=== PATIENT | female | born 1990 | race Caucasian/White ===

== ENCOUNTER 2016-05-19 07:35 | Emergency (ER) | payer OTHER ==
[~2016-05-19] VITALS: Ht 162.6 cm; Wt 78.2 kg
[~2016-05-19 07:35] MED LIST: ALBU8.5H4 IH; Acetaminophen PO; DOCU-41 PO; FLUT16SP2 NS; HYDR25SU31 RC; HYDR30CR76 RC; LORA10CA PO; PROM25SU46 RC
[2016-05-19 07:43] VITALS: BP 109/59; PULSE 83; RESP 26; O2SAT 100
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
[2016-05-19 08:17] LABS: BASOPHILS % (AUTO) 0.3 % (0-3); MONOCYTES % (AUTO) 7.7 % (4-12); Mean Corpuscular Volume 91.1 fL (81-100); NEUTROPHILS % (AUTO) 47.9 % (40-74); Platelet Count 268 bil/L (150-400)
[2016-05-19 08:39] LABS: TROPONIN T 0.01 ug/L (0.0-0.011)
[2016-05-19 10:30] VITALS: BP 101/60; PULSE 91; RESP 21; O2SAT 96
== END 2016-05-19 10:31 | disposition home or self-care (01) ==
LOC: EDUNIT# 07:35 → EDBD 07:35 → SED 07:35
DX: T75.4XXA Electrocution, initial encounter (principal); W86.0XXA Exposure to domestic wiring and appliances, initial encounter; Y93.89 Activity, other specified; Y92.89 Other specified places as the place of occurrence of the external cause; Y99.0 Civilian activity done for income or pay; K21.9 Gastro-esophageal reflux disease without esophagitis; J45.909 Unspecified asthma, uncomplicated; Z79.899 Other long term (current) drug therapy; Z88.0 Allergy status to penicillin; Z88.2 Allergy status to sulfonamides; Z88.1 Allergy status to other antibiotic agents; Z88.6 Allergy status to analgesic agent; Z88.8 Allergy status to other drugs, medicaments and biological substances

== ENCOUNTER 2016-12-21 08:41 | Emergency (ER) | payer OTHER ==
[~2016-12-21] VITALS: Ht 162.6 cm; Wt 86.4 kg
[2016-12-21 08:45] VITALS: BP 126/87; PULSE 85; RESP 16; O2SAT 98
[2016-12-21] MEDS ORDERED: ALBU18HF INH (08:48)
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
[2016-12-21] MEDS ORDERED: Iohexol 300 mg/mL 30 mL Inj PO ONE (09:10)
[2016-12-21 09:18] LABS: BASOPHILS % (AUTO) 0.3 % (0-3); EOSINOPHILS % (AUTO) 1.6 % (0-5); MONOCYTES % (AUTO) 6.8 % (4-12); Mean Corpuscular Volume 94.2 fL (81-100); NEUTROPHILS % (AUTO) 44.8 % (40-74); Platelet Count 247 bil/L (150-400)
[2016-12-21 09:53] LABS: Magnesium 1.9 mg/dL (1.6-2.6)
--- NOTE | 2016-12-21 10:57 | DRSVH ---
PROCEDURE: CT ABDOMEN AND PELVIS WITH CONTRAST ([id number]) INDICATIONS: abdominal pain TECHNIQUE: After the administration of intravenous contrast, 5 mm thick sections acquired from the diaphragm to the symphysis. 5 mm coronal and sagittal reformats were acquired. For radiation dose reduction, the following was used: automated exposure control, adjustment of mA and/or kV according to patient siz e. COMPARISON: [facility], CR, XR ABD ACUTE SERIES 3VW, 04/12/2016, 14:57. [facility] , CT, ABD/PELVIS W/CON (PNL), 08/24/2008, 17:39. FINDINGS: Image quality: Excellent. ABDOMEN: Lung bases: Lung bases are clear. Heart size is normal. Solid organs: Liver and spleen are normal in size and enhancement. Gallbladder is surgically absent . Biliary system is non dilated. Pancreas enhances normally. No adrenal nodules. Kidneys demonstr ate normal size and enhancement, without hydronephrosis. Peritoneum and bowel: Appendix is normal. Bowel loops demonstrate normal wall thickness and caliber. No free fluid or air. Nodes and vessels: No retroperitoneal or mesenteric adenopathy by size criteria. Aorta and inferior vena cava are normal in size. Miscellaneous: No ventral hernias. PELVIS: Genitourinary: Bladder wall thickness is normal. Uterus is normal. No adnexal mass. There is a 1.6 cm right ovarian cyst. No free fluid in cul-de-sac. Miscellaneous: No inguinal hernias or adenopathy. Bones: No suspicious bony lesions. No vertebral body compression fractures. IMPRESSION: 1. Normal appendix. No definitive findings Exten right lower quadrant pain. 2. A 1.6 cm cyst in the right ovary, most likely a dominant right ovarian follicle. 3. Cholecystectomy. Dictated by: Radha Nicole M.D. on 12/21/2016 at 10:44 Approved by: Radha Nicole M.D. on 12/21/2016 at 10:55
[2016-12-21 12:44] VITALS: BP 113/69; PULSE 74; RESP 14; O2SAT 99
[2016-12-21 13:01] VITALS: BP 113/69; PULSE 74; RESP 14; O2SAT 99
--- NOTE | 2016-12-23 16:59 | DRSVH ---
PROCEDURE: US PELVIC SONOGRAM WITH TRANSVAG AND DOPPLER INDICATIONS: R pelvic pain r/o torsion TECHNIQUE: Real-time scanning was performed of the pelvic organs, with image documentation. Additional endovagi nal scanning was necessary due to incomplete visualization of the adnexal and endometrial structures by transabdominal scanning. COMPARISON: None. FINDINGS: (orthogonal measurements) Uterus size: 6.91 cm, 5.54 cm, 5.81 cm Endometrium thickness: 1.15 cm Right ovary size: 2.09 cm, 2.74 cm, 2.58 cm Left ovary size: 3.49 cm, 1.76 cm, 2.58 cm Transabdominal scanning: Limited scanning through the kidneys shows no hydronephrosis. No pathologi c free abdominal or pelvic fluid. Endovaginal scanning: Uterus: Uterus is normal in size and appearance. Endometrium is within normal physiologic limits. Ovaries: Within normal physiologic limits. Dominant follicle the right ovary measuring 19 mm. Dopp ler assessment demonstrates bilateral arterial ovarian flow. IMPRESSION: 1. Dominant follicular cyst involving the right ovary measuring 19 mm in Doppler assessment demonstra ngoc normal ovarian arterial flow bilaterally. Dictated by: Miguel RICO Interpreted: Emy Molina MD on 12/21/2016 at 12:49 Approved by: Emy Molina M.D. on 12/23/2016 at 16:57
== END 2016-12-21 13:01 | disposition home or self-care (01) ==
LOC: SED 08:41
DX: N83.201 Unspecified ovarian cyst, right side (principal); J45.909 Unspecified asthma, uncomplicated; K21.9 Gastro-esophageal reflux disease without esophagitis; Z90.49 Acquired absence of other specified parts of digestive tract; Z88.0 Allergy status to penicillin; Z88.1 Allergy status to other antibiotic agents; Z88.2 Allergy status to sulfonamides; Z88.6 Allergy status to analgesic agent; Z88.8 Allergy status to other drugs, medicaments and biological substances
CPT/HCPCS: 36415; 74177; 76830; 76856; 80053; 81025; 83690; 83735; 84703; 85025; 93975; 99284; Q9967